=== PATIENT | female | born 1995 | race Caucasian/White ===

== ENCOUNTER 2022-01-07 01:12 | Emergency (ER) | payer MEDICAID ==
[~2022-01-07] VITALS: Ht 167.6 cm; Wt 72.6 kg
[~2022-01-07 01:12] MED LIST: COUGH MEDICINE; QUET300T1 PO; SERT100T1 PO
--- NOTE | 2022-01-07 01:15 | NUR ---
PT MIGUEL ANGEL WILL. [place] [employer] WITH PT. TAKEN TO CHAIR Addendum: 01/07/22 at 0117 by BAL PT TAKEN TO BED 10
[2022-01-07 01:20] VITALS: BP 131/79
--- NOTE | 2022-01-07 01:21 | NUR ---
Dr. Gaspar examining patient.
[2022-01-07 01:43] VITALS: BP 131/79
--- NOTE | 2022-01-07 01:43 | NUR ---
PATIENT BIB [employer]. PATIENT EXAMINED BY DR. LEE. PATIENT MEDICALLY CLEARED AND RELEASED IN CUSTODY IN STABLE CONDITION. ORIGINAL PRE-BOOK FORM GIVEN TO OFFICER #[id number] [place] [employer].
== END 2022-01-07 01:43 ==
LOC: MED 01:12
CPT/HCPCS: 99283